=== PATIENT | female | born 1940 | race Caucasian/White ===

== ENCOUNTER → 2016-10-23 | Day surgery (SDC) | payer MEDICARE, OTHER ==
[~2016-10-23] MED LIST: Bupivacaine 0.25% 30 ML SDV ONE; Heparin Sodium 10 Units/ML 5 ML Syringe FLUSH ONE; Ketorolac 15 MG/ML SDV IVPUSH ONE; Lactated Ringers 1,000 ML IV ONE; Lactated Ringers 1,000 ML IV SCH; Lidocaine 1% with EPINEPHrine 1:100,000 20 ML MDV ONE; Ondansetron 4 MG/2 ML SDV IVPUSH ONE; Propofol 200 MG/20 ML SDV IV ONE; Sodium Chloride 0.9% 10 ML Syringe FLUSH PRN; ceFAZolin 1 GM in Sodium Chloride 0.9% 50 ML IV ONE; fentaNYL 100 MCG/2 ML SDV IV ONE
--- NOTE | 2016-10-23 14:46 | PCM.HP ---
H&P History of Present Illness - General Date of Service: 10/23/16 (Seen prior to procedure) Admit Problem/Dx: Admission Diagnosis/Problem Admission Diagnosis/Problem Insertion of implantable venous access port Source of Information: Patient, Old records History Limitations: Reports: No limitations - History of Present Illness Initial Comments - Free Text/Narative: Here for A-port placement for chemo for esophageal cancer - Related Data Allergies/Adverse Reactions: Allergies Allergy/AdvReac Type Severity Reaction Status Date / Time No Known Allergies Allergy Verified 09/30/13 13:24 Home Medications: Home Meds Acetaminophen [Tylenol Extra Strength] 500 mg PO Q6H PRN 09/30/13 [History] Amitriptyline [Elavil] 10 mg PO BEDTIME 09/30/13 [History] Aspirin [Adult Low Dose Aspirin EC] 81 mg PO DAILY 09/30/13 [History] Calcium Carbonate/Vitamin D3 [Caltrate 600 Plus D3 Tablet] 1 each PO BID [History] Carvedilol 12.5 mg PO BID 09/30/13 [History] Cholecalciferol (Vitamin D3) [Vitamin D3] 1,000 unit PO DAILY 09/30/13 [History] Loratadine [Allergy] 10 mg PO DAILY PRN 09/30/13 [History] Losartan [Cozaar] 100 mg PO DAILY 09/30/13 [History] Lovastatin [Mevacor] 20 mg PO ASDIRECTED 09/30/13 [History] Methimazole [Tapazole] 5 mg PO DAILY 09/30/13 [History] Omeprazole 20 mg PO BID 09/30/13 [History] Tamoxifen [Nolvadex] 20 mg PO DAILY 09/30/13 [History] amLODIPine [Norvasc] 5 mg PO DAILY 09/30/13 [History] busPIRone [Buspar] 7.5 mg PO BID 09/30/13 [History] Carboxymethylcellulos/Glycerin [Refresh Optive] 1 drop EYEBOTH BID 10/22/16 [ History] Polyethylene Glycol 3350 [MiraLAX] 17 gm PO DAILY PRN 10/22/16 [History] Past Medical History HEENT History: Reports: Cataract Cardiovascular History: Reports: High cholesterol, Hypertension Gastrointestinal History: Reports: GERD 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: Neurological History: Reports: None Endocrine/Metabolic History: Reports: Hyperthyroidism Oncologic (Cancer) History: Reports: Esophageal Dermatologic History: Reports: None - Infectious Disease History Infectious Disease History: Reports: None - Past Surgical History HEENT Surgical History: Reports: Cataract surgery, Tonsillectomy Cardiovascular Surgical History: Reports: Other (see below) Other Cardiovascular Surgeries/Procedures: CARDIAC CATHERIZATION GI Surgical History: Reports: Colonoscopy Female Surgical History: Reports: Breast biopsy, Hysterectomy Social & Family History - Tobacco Use Smoking Status *Q: Never Smoker - Caffeine Use Caffeine Use: Reports: None - Recreational Drug Use Recreational Drug Use: No H&P Review of Systems - Review of Systems: Review Of Systems: ROS reveals no pertinent complaints other than HPI. Exam - Exam Exam: See Below - Vital Signs Weight: 71.214 kg - Exam General: alert, oriented Neck: supple, trachea midline, other (small ext jugular vein is present on left) Lungs: Clear to auscultation, Normal respiratory effort Cardiovascular: regular rate, regular rhythm *Q Meaningful Use (ADM) - VTE *Q VTE Criteria *Q: - Stroke *Q Stroke Criteria *Q: - AMI *Q AMI Criteria *Q: Problem List Initiated/Reviewed/Updated: Yes Orders Last 24hrs: Active Orders 24 hr Category Date Time Status Patient Status [ADT] Routine ADT 10/23/16 12:30 Ordered Patient to Empty Bladder [RC] ASDIRECTED Care 10/23/16 12:30 Active Verify Patient Consent Obtain [RC] ASDIRECTED Care 10/23/16 12:30 Active Nothing Per Oral Diet [DIET] Diet 10/23/16 Breakfast Ordered Lactated Ringers [Ringers, Lactated] 1,000 ml Med 10/23/16 12:30 Active IV ASDIRECTED Sodium Chloride 0.9% [Saline Flush] Med 10/23/16 12:30 Active 10 ml FLUSH ASDIRECTED PRN Peripheral IV Insertion Adult [OM.PC] Routine Oth 10/23/16 12:30 Ordered Sequential Compression Device [OM.PC] Routine Oth 10/23/16 12:30 Ordered Resuscitation Status Routine Resus Stat 10/22/16 14:45 Ordered Medication Orders Lactated Ringer's (Ringers, Lactated) 1,000 mls @ 125 mls/hr IV ASDIRECTED ALCIDES Sodium Chloride (Saline Flush) 10 ml FLUSH ASDIRECTED PRN PRN Reason: Keep Vein Open Assessment/Plan Comment:: Esophageal Cancer; need for chemotherapy Consent obtained for A-port placement; risks and complications reviewed, consent obtained
--- NOTE | 2016-10-23 15:40 | OR ---
DATE OF OPERATION: 10/23/2016 SURGEON: Dustin Gifford MD PREOPERATIVE DIAGNOSIS: Esophageal cancer with need for chemotherapy. POSTOPERATIVE DIAGNOSIS: Esophageal cancer with need for chemotherapy. PROCEDURE: Placement of A-port left subclavian vein. ANESTHESIA: Local with IV sedation. PROCEDURE IN DETAIL: The patient was brought to the operating room, where her left neck, chest, and shoulder area were prepped with ChloraPrep and draped sterilely. A 50:50 mixture of 1% lidocaine with epinephrine and 0.25% Marcaine was used for local anesthesia. The left subclavian vein was cannulated with some difficulty taking a few attempts. A J wire was passed and met minimal resistance and then passed easily. Fluoroscopy was used to confirm its placement in the superior vena cava. An incision was made in the left upper chest wall for the port and the wire was brought out through this incision. The Cook introducer and dilator were placed over the wire, and the wire and dilator were removed, leaving the introducer in place. An 8-Portuguese catheter which had been flushed with dilute heparinized saline was then placed. This was in the superior vena cava and cut at 21 cm and connected to the port. This aspirated with good blood return and was flushed with heparinized saline. A-port was secured to the chest wall with #3-0 Vicryl. Subcutaneous tissue was closed with #4-0 Vicryl and skin was closed with a running #4-0 Vicryl subcuticular suture. Benzoin and Steri-Strips were placed. A non-coring needle was then inserted for chemotherapy tomorrow. This aspirated with good blood return and was flushed with 5 mL of heparin lock. A sterile dressing was placed over the catheter. The patient tolerated the procedure well and returned to recovery in stable condition. Postop chest x-ray will be obtained. /[id number] BALBIR/JANENE
--- NOTE | 2016-10-24 11:47 | CR ---
INDICATION: A-Port placement. C-ARM FLUOROSCOPY IN O.R., LESS THAN 1 HOUR: 0.6 minutes C-arm fluoroscopy time was utilized in O.R. during placement of an A-Port from the left subclavian. Eight fluoroscopic spots were obtained showing initial placement of the tip in the right atrium. MTDD
--- NOTE | 2016-10-24 11:54 | CR ---
INDICATION: A-Port placement. CHEST: An AP upright view of the chest was obtained after A-Port placement and compared with 01/30/2012 PA view. The aorta is tortuous and calcified in the arch area. The heart appears to be at the upper limits of normal in size. Evidence of axillary node dissection is noted on the right - correlate clinically. A-Port is now noted in place with its tip approximately 1 cm below the level of the jose miguel in the area of the SVC from the left subclavian. A complicating process was not identified post A-Port placement. A definite active infiltrate or effusion was not identified with slight increased density at the costophrenic angles, left greater than right, likely due to overlying soft tissue. There is an appearance of a sclerotic density overlying the left mid lung field lateral to the A-Port, which could be related to the scapula, possibly on the basis of previous trauma or benign bone island. IMPRESSION: 1. Satisfactory appearance post A-Port placement. 2. ASHD with heart at the upper limits of normal in size or slightly enlarged. MTDD
== END | disposition home or self-care (01) ==
LOC: FB.SDS 12:22
PROVIDERS: ATTEND Surgery
DX: Z51.11 Encounter for antineoplastic chemotherapy (principal); I10 Essential (primary) hypertension; E78.00 Pure hypercholesterolemia, unspecified; E05.90 Thyrotoxicosis, unspecified without thyrotoxic crisis or storm; K21.9 Gastro-esophageal reflux disease without esophagitis; Z79.82 Long term (current) use of aspirin; Z79.899 Other long term (current) drug therapy; Z90.710 Acquired absence of both cervix and uterus; Z98.890 Other specified postprocedural states
CPT/HCPCS: 00532; 36561; 76000; J0690; J1642; J1885; J2405; J2704; J3010; J7050; J7120; J3490

== ENCOUNTER 2016-11-18 10:57 | Emergency (ER) | payer MEDICARE, OTHER ==
[2016-11-18] MEDS ORDERED: Sodium Chloride 0.9% 1,000 ML IV SCH ×2 (11:45→13:00)
--- NOTE | 2016-11-18 11:52 | EDM.PDOC ---
ED HPI GENERAL MEDICAL PROBLEM - General Chief Complaint: Gastrointestinal Problem Stated Complaint: CONCERNS WITH FEEDING TUBE Time Seen by Provider: 11/18/16 11:10 Source of Information: Reports: Patient, Family History Limitations: Reports: No Limitations - History of Present Illness INITIAL COMMENTS - FREE TEXT/NARRATIVE: c/o weak and lightheaded says sxs started at 7:30 AM when she got up, also c/o chills daily x 6w, no fever, no n/v, no pain, gets diarrhea after g-tube feeds lives in apartment her in town, son here (who lives 1 mile away), dtr here ( from [place] and staying wtih her since 10/19) dx Stage II esophageal CA 6w ago, "small opening", started lower 1/3rd of esophagus, now involving heart & lung & middle 1/3rd of esophagus, may be adenoCA per pt oncologist Dr Zaidi in [place], 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 received 4/5 chemo weekly on Sat, feels better Wed PM (perhaps steroids, per dtr ), then very tired on [place] (as happened this wk 2d ago), not recovered yet from last round of chemo, has not had neutropenia per dtr, no labs in EHR here had RT daily Mon-Sat, has completed 20 tx's and has 10 to go, finishing on December 03 little PO, no solids, cannot keep milkshakes down, does keep water down on occasion 4d ago advised her K was low and her kidney numbers were up and that she needed to drink more has g-tube x 6w, not used until last few days, supposed to take 8 boxes of Nutrena 1.0 per day which is 2000 calories, has not been able to keep in one down got 70 cc of Nutrena via g-tube this AM (which is about 1/4th of of a box) but had diarrhea, went to lay down in her bedroom and felt extremely weak, dtr noted she was exhausted as if she had just done aerobic exercise uses a rolling walker at home, has not fallen - Related Data Allergies Allergy/AdvReac Type Severity Reaction Status Date / Time No Known Allergies Allergy Verified 11/18/16 11:22 Home Meds: Home Meds Acetaminophen [Tylenol Extra Strength] 500 mg PO Q6H PRN 09/30/13 [History] Amitriptyline [Elavil] 10 mg PO BEDTIME 09/30/13 [History] Aspirin [Adult Low Dose Aspirin EC] 81 mg PO DAILY 09/30/13 [History] Calcium Carbonate/Vitamin D3 [Caltrate 600 Plus D3 Tablet] 1 each PO BID [History] Carvedilol 12.5 mg PO BID 09/30/13 [History] Cholecalciferol (Vitamin D3) [Vitamin D3] 1,000 unit PO DAILY 09/30/13 [History] Loratadine [Allergy] 10 mg PO DAILY PRN 09/30/13 [History] Losartan [Cozaar] 100 mg PO DAILY 09/30/13 [History] Lovastatin [Mevacor] 20 mg PO ASDIRECTED 09/30/13 [History] Methimazole [Tapazole] 5 mg PO DAILY 09/30/13 [History] Omeprazole 20 mg PO BID 09/30/13 [History] Tamoxifen [Nolvadex] 20 mg PO DAILY 09/30/13 [History] amLODIPine [Norvasc] 5 mg PO DAILY 09/30/13 [History] busPIRone [Buspar] 7.5 mg PO BID 09/30/13 [History] Carboxymethylcellulos/Glycerin [Refresh Optive] 1 drop EYEBOTH BID 10/22/16 [ History] Polyethylene Glycol 3350 [MiraLAX] 17 gm PO DAILY PRN 10/22/16 [History] Acetaminophen with Codeine [Tylenol with Codeine #3 Tablet] 1 each PO QID #12 tablet 11/18/16 [Rx] Sulfamethoxazole/Trimethoprim [Bactrim Ds Tablet] 1 each PO BID #14 tablet 11/18 [Rx] Past Medical History HEENT History: Reports: Cataract Cardiovascular History: Reports: High Cholesterol, Hypertension Gastrointestinal History: Reports: GERD 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: Neurological History: Reports: None Endocrine/Metabolic History: Reports: Hyperthyroidism Oncologic (Cancer) History: Reports: Breast, Esophageal Dermatologic History: Reports: None - Infectious Disease History Infectious Disease History: Reports: None - Past Surgical History HEENT Surgical History: Reports: Cataract Surgery, Tonsillectomy GI Surgical History: Reports: Colonoscopy Other GI Surgeries/Procedures: PEG tube Female Surgical History: Reports: Breast Biopsy, Hysterectomy Social & Family History - Family History Family Medical History: Unobtainable - Tobacco Use Smoking Status *Q: Never Smoker - Caffeine Use Caffeine Use: Reports: None - Recreational Drug Use Recreational Drug Use: No ED ROS GENERAL - Review of Systems Review Of Systems: See Below Constitutional: Reports: Chills, Weakness, Fatigue, Decreased Appetite, Weight Loss, Other (40 lb wt loss in past 7m) HEENT: Reports: No Symptoms Respiratory: Reports: No Symptoms Cardiovascular: Reports: No Symptoms Endocrine: Reports: No Symptoms GI/Abdominal: Reports: Diarrhea : Reports: No Symptoms Musculoskeletal: Reports: No Symptoms Skin: Reports: No Symptoms Neurological: Reports: No Symptoms Psychiatric: Reports: No Symptoms Hematologic/Lymphatic: Reports: No Symptoms Immunologic: Reports: No Symptoms ED EXAM, GENERAL - Physical Exam Exam: See Below Exam Limited By: No Limitations General Appearance: Alert, WD/WN, No Apparent Distress, Other (pleasant, exhausted, somewhat depressed with flat affect) Eye Exam: Bilateral Eye: Normal Inspection Ears: Normal External Exam, Normal Canal Nose: Normal Inspection, Normal Mucosa, No Blood Throat/Mouth: Normal Inspection, Normal Lips, Normal Voice, No Airway Compromise Head: Atraumatic, Normocephalic Neck: Normal Inspection, Supple, Non-Tender, Full Range of Motion Respiratory/Chest: No Respiratory Distress, Lungs Clear, Normal Breath Sounds, No Accessory Muscle Use, Chest Non-Tender, Other (good AE, no rales at base, no wheeze, no cough, no dyspnea) Cardiovascular: Regular Rate, Rhythm, No Gallop, No JVD, No Rub, Other (2/6 AVRIL at LSB, dec'd turgor, trace edema to knees b/l and symmetric) GI/Abdominal: Normal Bowel Sounds, Soft, Non-Tender, No Organomegaly, No Distention, No Mass Back Exam: Normal Inspection, Full Range of Motion, NT Extremities: Normal Inspection, Normal Range of Motion, Non-Tender Neurological: Alert, Oriented, CN II-XII Intact, Normal Cognition, No Motor/ Sensory Deficits Psychiatric: Depressed Mood, Flat Affect Skin Exam: Warm, Dry, Intact, Normal Color, No Rash Lymphatic: No Adenopathy Course - Vital Signs Last Recorded V/S: Last Vital Signs Temp 36.3 C 11/18/16 11:00 Pulse 87 11/18/16 11:00 Resp 15 11/18/16 11:00 BP 123/75 11/18/16 11:00 Pulse Ox 100 11/18/16 11:00 Orthostatic Blood Pressure [ 96/62 Standing] Orthostatic Blood Pressure [ 111/59 Sitting] Orthostatic Blood Pressure [ 128/73 Supine] - Orders/Labs/Meds Orders: Active Orders 24 hr Category Date Time Status Orthostatic Vital Signs [RC] ONETIME Care 11/18/16 11:37 Active CULTURE URINE [RM] Stat Lab 11/18/16 14:12 Ordered Sodium Chloride 0.9% [Normal Saline] 1,000 ml Med 11/18/16 11:45 Active IV ASDIRECTED Sodium Chloride 0.9% [Normal Saline] 1,000 ml Med 11/18/16 13:00 Active IV ASDIRECTED Medication Orders Sodium Chloride (Normal Saline) 1,000 mls @ 999 mls/hr IV ASDIRECTED ALCIDES Last Admin: 11/18/16 12:23 Dose: 999 mls/hr Sodium Chloride (Normal Saline) 1,000 mls @ 999 mls/hr IV ASDIRECTED ALCIDES Last Admin: 11/18/16 13:28 Dose: 999 mls/hr Labs: Laboratory Tests 11/18/16 11/18/16 11/18/16 Range/Units 11:45 11:45 13:30 WBC 3.6 L (4.5-12.0) X10-3/uL RBC 3.65 (3.23-5.20) x10(6)uL Hgb 8.9 L (11.5-15.5) g/dL Hct 27.0 L (30.0-51.3) % MCV 73.7 L (80-96) fL MCH 24.2 L (27.7-33.6) pg MCHC 32.9 (32.2-35.4) g/dL RDW 14.9 (11.5-15.5) % Plt Count 156 (125-369) X10(3)uL MPV 6.7 L (7.4-10.4) fL Add Manual Diff Yes Neutrophils % (Manual) 86 H (46-82) % Lymphocytes % (Manual) 8 L (13-37) % Monocytes % (Manual) 6 (4-12) % Poikilocytosis Few Anisocytosis Few Microcytosis Moderate H Sodium 130 L (135-145) mmol/L Potassium 3.0 L (3.5-5.3) mmol/L Chloride 96 L (100-110) mmol/L Carbon Dioxide 21 L (23-29) mmol/L BUN 13 (8-23) mg/dL Creatinine 1.2 (0.6-1.3) mg/dL Est Cr Clr Drug Dosing 32.99 mL/min Estimated GFR (MDRD) 44 L (>60) BUN/Creatinine Ratio 10.8 (9-20) Glucose 109 (80-116) mg/dL Calcium 6.8 L (8.6-10.2) mg/dL Total Bilirubin 0.9 (0.1-1.3) mg/dL AST 26 (5-27) IU/L ALT 24 (14-26) IU/L Alkaline Phosphatase 30 L (56-112) IU/L C-Reactive Protein < 0.5 (0.0-1.0) mg/dL Total Protein 6.2 (6.0-8.0) g/dL Albumin 3.3 (3.2-4.6) g/dL Globulin 2.9 g/dL Albumin/Globulin Ratio 1.1 Urine Color Yellow (YELLOW) Urine Appearance Slightly cloudy (CLEAR) Urine pH 7.0 H (5.0-6.5) Ur Specific [place] 1.005 L (1.010-1.025) Urine Protein Negative (NEGATIVE) mg/dL Urine Glucose (UA) Normal (NEGATIVE) mg/dL Urine Ketones Negative (NEGATIVE) mg/dL Urine Occult Blood Negative (NEGATIVE) Urine Nitrite Negative (NEGATIVE) Urine Bilirubin Negative (NEGATIVE) Urine Urobilinogen Normal (NEGATIVE) mg/dL Ur Leukocyte Esterase Small H (NEGATIVE) Urine WBC 5-10 (0) Ur Squamous Epith Cells Few H (NS,R,O) Urine Bacteria Moderate H (NS) Meds: Medications Generic Name Dose Route Start Last Admin Trade Name Freq PRN Reason Stop Dose Admin Sodium Chloride 1,000 mls @ 999 mls/hr 11/18/16 11:45 11/18/16 12:23 Normal Saline IV 999 mls/hr ASDIRECTED ALCIDES Administration Sodium Chloride 1,000 mls @ 999 mls/hr 11/18/16 13:00 11/18/16 13:28 Normal Saline IV 999 mls/hr ASDIRECTED ALCIDES Administration Discontinued Medications Generic Name Dose Route Start Last Admin Trade Name Freq PRN Reason Stop Dose Admin Potassium Chloride 40 meq 11/18/16 12:41 11/18/16 12:48 Potassium Chloride Solution GTUBE 11/18/16 12:42 40 meq ONETIME ONE Administration - Re-Assessments/Exams Free Text/Narrative Re-Assessment/Exam: 11/18/16 14:19 feeling better, on her 2nd liter NS, u/a shows UTI, oncologist is working on K supplementation, liquid with too high a co-pay (over $200), the dissolving K clogged the g-tube and required it to be replaced, is to get the effervescent formulation tomorrow, may used Pedialyte (as per dtr request) Departure - Departure Time of Disposition: 14:23 Disposition: Home, Self-Care 01 Condition: good Clinical Impression: Dehydration, UTI (urinary tract infection), Leukopenia, Hypokalemia - Discharge Information Prescriptions: Acetaminophen with Codeine [Tylenol with Codeine #3 Tablet] 1 each PO QID #12 tablet Sulfamethoxazole/Trimethoprim [Bactrim Ds Tablet] 1 each PO BID #14 tablet Instructions: Dehydration, Adult, [id number], Rehydration, Adult, Hypokalemia , Urinary Tract Infection, Adult Referrals: Pauline Taylor, RN OR LVN [Primary Care Provider] - Forms: ED Department Discharge Additional Instructions: You potassium is low at 3.0. Check with your doctor on getting your potassium supplementation. For your bladder infection, take Bactrim DS 1 tab 2 times a day for 7 days. For your diarrhea, take Tylenol #3 four times a day. See your oncologist as scheduled. Return to ED if you are feeling worse. Call your Physician or Return to Emergency Department if: * Your condition worsens in any way. * You develop fever greater than 100.4. * You have vomitting that does not stop with medications. * You have pain that is not controlled with medications. - My Orders Last 24 Hours: My Active Orders 11/18/16 11:37 Orthostatic Vital Signs [RC] ONETIME 11/18/16 11:45 Sodium Chloride 0.9% [Normal Saline] 1,000 ml IV ASDIRECTED 11/18/16 13:00 Sodium Chloride 0.9% [Normal Saline] 1,000 ml IV ASDIRECTED 11/18/16 14:12 CULTURE URINE [RM] Stat - Assessment/Plan Last 24 Hours: My Active Orders 11/18/16 11:37 Orthostatic Vital Signs [RC] ONETIME 11/18/16 11:45 Sodium Chloride 0.9% [Normal Saline] 1,000 ml IV ASDIRECTED 11/18/16 13:00 Sodium Chloride 0.9% [Normal Saline] 1,000 ml IV ASDIRECTED 11/18/16 14:12 CULTURE URINE [RM] Stat
[2016-11-18] MEDS ORDERED: Potassium Chloride 10% 20 MEQ/15 ML Soln 15 ML UD Cup GTUBE ONE (12:41)
[2016-11-18 15:01] VITALS: BP 109/68
== END 2016-11-18 14:50 | disposition home or self-care (01) ==
LOC: FB.ED 10:57
DX: N39.0 Urinary tract infection, site not specified (principal); E87.6 Hypokalemia; E86.0 Dehydration; E78.00 Pure hypercholesterolemia, unspecified; I10 Essential (primary) hypertension; K21.9 Gastro-esophageal reflux disease without esophagitis; E05.90 Thyrotoxicosis, unspecified without thyrotoxic crisis or storm; D72.819 Decreased white blood cell count, unspecified; Z98.49 Cataract extraction status, unspecified eye; Z98.890 Other specified postprocedural states; Z90.710 Acquired absence of both cervix and uterus; Z79.82 Long term (current) use of aspirin; Z79.899 Other long term (current) drug therapy
CPT/HCPCS: 36415; 80053; 81001; 85025; 86140; 87086; 96360; 96361; 99284; A9270; J7040; 99283